=== PATIENT | male | born 1995 | race Two or more races ===

== ENCOUNTER 2024-08-22 13:00 | Outpatient (RCR) | payer OTHER, MEDICAID, SELFPAY ==
--- NOTE | 2024-08-06 09:45 | PT.ODAYNRPT ---
PT Outpatient Daily Note OP Daily Note Outpatient Physical Therapy Treatment Date: 08/06/24 Visit Reasons: CLOSED FX TIBIA RIGHT Subjective: Pt reports progress with R LE. Objective: Please see flow sheet for ther ex list. Assessment: Pt demonstrates improved gait, increase WB on R LE during stance phase. Plan: Continue with POC. Length of Time (minutes) of Treatment: 30 Minutes Procedure Charges Therapeutic Exercise 30 minutes: Yes
--- NOTE | 2024-08-09 13:05 | PTNOTE_ITS ---
PT Outpatient Daily Note OP Daily Note Outpatient Physical Therapy Treatment Date: 08/09/24 Visit Reasons: CLOSED FX TIBIA RIGHT Subjective: Pt's knee is better. Pt's surgeon mention he can return back to work after [place]. Objective: Please see flow chart for list of ther ex performed Assessment: progressing patient to single limb exercises with improved quad control and stability. Pt also demonstrate less antalgic gait pre therapy session Plan: Continue with PT Length of Time (minutes) of Treatment: 30 Minutes Procedure Charges Therapeutic Exercise 30 minutes: Yes
--- NOTE | 2024-08-14 09:51 | PT.ODAYNRPT ---
PT Outpatient Daily Note OP Daily Note Outpatient Physical Therapy Treatment Date: 08/14/24 Visit Reasons: CLOSED FX TIBIA RIGHT Subjective: Pt reports knee is doing better, mentioned surgeon cleared him to return to work in a month. Objective: Please see flow sheet for ther ex list. Assessment: Added half kneeling lunges, pt completed with good technique minimal discomfort. Plan: Continue with POC. Length of Time (minutes) of Treatment: 30 Minutes Procedure Charges Therapeutic Exercise 30 minutes: Yes
--- NOTE | 2024-08-16 14:17 | PTNOTE_ITS ---
PT Outpatient Daily Note OP Daily Note Outpatient Physical Therapy Treatment Date: 08/16/24 Visit Reasons: CLOSED FX TIBIA RIGHT Subjective: Pt reports R leg is doing better but notices that he still can not squat all the way or kneel. Pt shared R knee is swollen today. Objective: Please see flow sheet for ther ex list. 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 Plan: Continue with POC. Length of Time (minutes) of Treatment: 30 Minutes Procedure Charges Therapeutic Exercise 30 minutes: Yes
--- NOTE | 2024-08-19 14:03 | PT.ODAYNRPT ---
PT Outpatient Daily Note OP Daily Note Outpatient Physical Therapy Treatment Date: 08/19/24 Visit Reasons: CLOSED FX TIBIA RIGHT Subjective: Pt reports knee is doing better but now that the weather is cold has been having some pain. Objective: Please see flow sheet for ther ex list. Assessment: Added balance board exercise, pt able to perform with no IMPROVEMENT INTERN. Plan: Continue with POC. Length of Time (minutes) of Treatment: 30 Minutes Procedure Charges Therapeutic Exercise 30 minutes: Yes
--- NOTE | 2024-08-22 13:23 | PT.ODAYNRPT ---
PT Outpatient Daily Note OP Daily Note Outpatient Physical Therapy Treatment Date: 08/22/24 Visit Reasons: CLOSED FX TIBIA RIGHT Subjective: Pt reports R leg is doing better. Pt shared that he has occasional pain that is 3/10 and mentioned he has about two weeks that he has been going to the gym. Pt is content with progress he has made and would like for next PT session to be his last. Pt expressed that he venkata continue with HEP and home and continue going to the gym. Objective: Please see flow sheet for ther ex list. Assessment: Pt presents in clinic with improvement in ROM and strength. Pt able to replicate there ex with good mechanics indicting appropriate for pt to be releases perform HEP independently in following visit. Plan: Continue with pOC. Length of Time (minutes) of Treatment: 30 Minutes Procedure Charges Therapeutic Exercise 30 minutes: Yes
== END 2024-08-31 23:59 | disposition home or self-care (01) ==
LOC: CPTX 13:00
PROVIDERS: PCP Orthopaedic Surgery Orthopaedic Trauma; Referring Provider Orthopaedic Surgery Orthopaedic Trauma; Visit Provider Orthopaedic Surgery Orthopaedic Trauma
DX: M25.561 Pain in right knee (principal); R26.2 Difficulty in walking, not elsewhere classified; S82.141D Displaced bicondylar fracture of right tibia, subsequent encounter for closed fracture with routine healing; W17.89XD Other fall from one level to another, subsequent encounter
CPT/HCPCS: 97110

== ENCOUNTER 2024-09-09 08:05 | Outpatient (RCR) | payer OTHER, MEDICAID, SELFPAY ==
--- NOTE | 2024-09-09 09:33 | PT.ODS1RPT ---
PT OP Progress/Discharge Note Date of Service: 09/09/24 Progress Note/DC Note Progress Note/Discharge Note: DC Note Patient Information Visit Reasons: CLOSED FZ RIGHT TIBIA Medical Diagnosis: Closed Fracture of Tibial Plateau Treatment Dx #1: Right Knee Mobility Deficits Treatment Dx #2: Right Knee Weakness Service Continue Service or Discharge: Discharge Discharge Date: 09/09/24 Status Subjective: Pt's knee is better and was release from surgeon's care. Pt can return back to work after [place]. Pt can now walk, stand, perform chores, and ADLs with less limitation. Objective: Right Knee AROM: 0 deg to 125 deg Right Knee MMTs: grossly 4/5 Right Hip MMTs: grossly 4-/5 SLS: 30 sec Assessment: Pt demonstrate functional right knee mobility and strength allowing him to resume ADLs, ambulate, and perform recreational activities with less limitation. At this time Pt will be d/c from care with exercises to continue at home. Pt was instructed on HEP last session and educated to continue exercises to maintain overall mobility. Pt performed all exercises safely, thank you for your referrals. Plan: D/C home with HEP and follow up with MD STAFFORD Procedure Charges Therapeutic Exercise 30 minutes: Yes
== END 2024-10-01 23:59 | disposition home or self-care (01) ==
LOC: CPTX 08:05
PROVIDERS: PCP Orthopaedic Surgery Orthopaedic Trauma; Referring Provider Orthopaedic Surgery Orthopaedic Trauma; Visit Provider Orthopaedic Surgery Orthopaedic Trauma
DX: M25.561 Pain in right knee (principal); R26.2 Difficulty in walking, not elsewhere classified; S82.141D Displaced bicondylar fracture of right tibia, subsequent encounter for closed fracture with routine healing; X58.XXXD Exposure to other specified factors, subsequent encounter
CPT/HCPCS: 97110

== ENCOUNTER 2025-03-16 01:32 | Emergency (ER) | payer OTHER, MEDICAID, SELFPAY ==
[2025-03-16 01:32] VITALS: BMI 34.1
--- NOTE | 2025-03-16 01:34 | EKG_ITS ---
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
[2025-03-16 01:53] VITALS: BP 132/57; PULSE 57; RESP 18; TEMP 36.8; O2SAT 98
--- NOTE | 2025-03-16 02:05 | XR_ITS ---
Examination: PA chest single view TECHNIQUE: Upright PA chest single view Date and time: March 16, 2025 0212 hours INDICATIONS: Chest pain beginning one week ago. FINDINGS: Normal heart size. Lungs are clear. The osseous structures are intact IMPRESSION: No active disease
--- NOTE | 2025-03-16 02:24 | PRELIM_ITS ---
Radiograph of the chest (single view). March 16, 2025 at 0210 hours Clinical history: Chest pain. Comparison: No prior study is available for comparison. Findings: Cardiomegaly. The lungs are clear. There is no pleural effusion. The bony thorax is unremarkable. No pneumothorax. Impression: Cardiomegaly. Consider correlation with echocardiogram. Report Electronically Signed By: Manuel Wren 03/16/2025 2:23:48 AM [EST]
[2025-03-16 02:44] LABS: Basophils # (Auto) 0.1 Thou/mm3 (0.0-0.2); Basophils % (Auto) 1 % (0-2.5); Eosinophils # (Auto) 0.1 Thou/mm3 (0.0-0.5); Eosinophils % (Auto) 1 % (0-10); Hemoglobin 15.3 g/dL (13.5-16.0); Immature Granulocytes % (Auto) 0 % (0-0); Immature Granulocytes Auto 0.04 Thou/mm3 (0.00-0.00); Lymphocytes # (Auto) 1.9 Thou/mm3 (1.0-4.8); Lymphocytes % (Auto) 19 % (10-50); Mean Corpuscular HGB Conc 34.8 g/dl (31.0-37.0); Mean Corpuscular Hemoglobin 29.5 pg (25.0-35.0); Mean Corpuscular Volume 85 fL (80-100); Monocytes # (Auto) 0.7 Thou/mm3 (0.0-0.8); Monocytes % (Auto) 7 % (0-12); Neutrophils # (Auto) 7.2 Thou/mm3 (1.8-7.7); Neutrophils % (Auto) 72 % (37-80); Nucleated Red Blood Cell % 0 /100 WBC (0); Platelet Count 322 Thou/mm3 (140-440); RDW Standard Deviation 43.6 fL (35.1-43.9); Red Blood Count 5.19 Miln/mm3 (4.50-5.90)
--- NOTE | 2025-03-16 03:05 | PD.EDCHEST ---
ED Chest Pain RME/HPI General Chief Complaint: Chest Pain Stated Complaint: CHEST PAIN FOR THE LAST WEEK Time Seen by Provider: 03/16/25 02:05 Arrival date/time: 03/16/25 01:32 29M with no significant PMH presents to ED with several year of intermittent CP, worse this past week. Patient denies SOB, URI symptoms, and alcohol/drug use. Patient states sometimes when he stretches, his chest pops, and he feels better. Patient has never seen any provider for this. Limitations: no limitations Related Data Allergies Allergy/AdvReac Type Severity Reaction Status Date / Time No Known Allergies Allergy Verified 03/16/25 01:32 Review of Systems Review of Systems Systems Reviewed: All systems reviewed, normal except as documented Constitutional Constitutional: Reports system reviewed and no additional complaints, except as documented, Denies fever(s) and Denies headache(s) ENT Ears, Nose, Mouth, and Throat: Denies disequilibrium and Denies headache(s) Cardiovascular Cardiovascular: Reports system reviewed and no additional complaints, except as documented, Reports as per HPI, Reports chest pain and Denies dyspnea Respiratory Respiratory: Reports system reviewed and no additional complaints, except as documented, Denies cough and Denies dyspnea Gastrointestinal Gastrointestinal: Reports system reviewed and no additional complaints, except as documented, Denies abdominal pain, Denies nausea and Denies vomiting Neurologic Neurologic: Reports system reviewed and no additional complaints, except as documented, Denies confusion, Denies disequilibrium and Denies headache(s) Psychiatric Psychiatric: Denies confusion Past Medical History Social History SMOKING STATUS: Never smoker ED Exam General Limitations: Present no limitations General appearance: Present alert and in no apparent distress Head Head exam: Present atraumatic Eye Eye exam: Present normal appearance, PERRL and EOMI ENT ENT exam: Present normal exam, normal oropharynx and mucous membranes moist Neck Neck exam: Present normal inspection, full ROM and trachea midline Chest Chest inspection: Present normal inspection and symmetric chest wall rise Respiratory Respiratory exam: Present normal lung sounds bilaterally Cardiovascular Cardiovascular exam: Present regular rate, normal rhythm and normal heart sounds Abdominal Exam Abdominal exam: Present soft and normal bowel sounds Extremities Exam Extremities exam: Present normal inspection and full ROM Back Exam Back exam: Present normal inspection and full ROM Neurological Exam Neurological exam: Present alert, oriented X3 and CN II-XII intact Psychiatric Psychiatric exam: Present normal affect and normal mood Skin Skin exam: Present warm, dry, intact and normal color Course Quality Measures none Orders Category Date Time Status EKG (ED ONLY) *Do not use* NOW Care 03/16/25 01:34 Completed EKG (ED Only) Stat Exams 03/16/25 01:34 Draft XR chest 1V portable Stat Exams 03/16/25 02:05 Taken B-Type Natriuretic Peptide Stat Lab 03/16/25 02:26 Completed CBC Stat Lab 03/16/25 02:26 Completed Comprehensive Metabolic Panel Stat Lab 03/16/25 02:26 Completed D-Dimer Stat Lab 03/16/25 02:26 Completed Troponin I Stat Lab 03/16/25 02:26 Completed Vital Signs Vital signs: Vital Signs Temperature 98.3 F 03/16/25 01:53 Pulse Rate 57 L 03/16/25 01:53 Respiratory Rate 18 03/16/25 01:53 Blood Pressure 132/57 H 03/16/25 01:53 Pulse Oximetry (%) 98 03/16/25 01:53 Oxygen Delivery Method Room Air 03/16/25 01:53 O2 at 98% on RA and WNLs Chest Pain MDM Narrative MDM Narrative:: 29M with no significant PMH presents to ED with several year of intermittent CP, worse this past week. Patient denies SOB, URI symptoms, and alcohol/drug use. Patient states sometimes when he stretches, his chest pops, and he feels better. Patient has never seen any provider for this. Physical exam reveals no chest wall tenderness. Clear lungs. Normal WOB. Patient is afebrile, calm, and alert. EKG is sinus jennie of 53. CXR reveals possible cardiomegaly. Normal trop, BNP, and D-dimer. CMP unremarkable except for mildly elevated K of 5.4. CBC unremarkable. Education Associate given. Patient data External records reviewed:: None Clinical information provided by:: patient Social determinants that could affect healthcare access:: none Patient has the following chronic illnesses:: none How is presenting disease/condition affected by chronic disease/condition?: no chronic disease Evaluation data The following diagnostics were reviewed and interpreted by me:: lab results, radiology exam(s) and EKG tracing(s) Lab and/or radiology exams considered but not ordered:: ordered Interpretation Summary: above Medications / Prescriptions Medications or Prescriptions considered but not ordered:: not ordered Medication administrations:: n/a Consultations Consultation(s) initiated? (list below): No Diagnosis Chest Pain Differential Diagnosis: fracture of rib, pneumothorax, stable angina, unstable angina pectoris, atypical chest pain, st elevation myocardial infarction, costochondritis, chest pain, biliary colic and other (hyperkalemia) Most likely diagnosis given after review of the tests above:: hyperkalemia and atypical chest pain Admission Indicated Admission indicated?: not indicated Admission Request Was there a request for admission?: No Disposition Plan Disposition Plan: Discharge Discharge Attestation Discharge Attestation: The patient and all family members were given an opportunity to ask questions and understood the discharge instructions. Discharge instructions specifically effects, indications for sooner follow up or return to the emergency department, and the expected course of current diagnosis. Patient condition: Stable Discharge Plan Plan Patient Disposition: HOME (Self Care) Discharge Disposition comment: Stable Prescriptions/Referrals Referrals: Toby Morris MD [Primary Care Provider] - In 1 week Problem List Clinical Impression: Hyperkalemia, Atypical chest pain Patient/Caregiver Discharge Instructions Education Materials: ED Chest Pain, Noncardiac, ED Hyperkalemia Additional Instructions: Please follow-up with PCP within 24-48 hours and return immediately if symptoms worsen. Can see PCP for referral to cardiology. Print Language: Cape Verdean Stand Alone Forms: Patient Portal Info Letter REED/DARIAN Supervising Physician KATHY Supervising Physician: Dr. Lemon
[2025-03-16 03:06] LABS: D-Dimer < 250 ng/mL (<600)
[2025-03-16 03:07] LABS: Alanine Aminotransferase 21 U/L (10-49); Albumin/Globulin Ratio 1.9 (1.2-2.2); Alkaline Phosphatase 100 U/L (46-116); Anion Gap 8 (7-16); Aspartate Amino Transferase 28 U/L (0-34); BUN/Creatinine Ratio 8 Ratio (12-20); Bilirubin,Total 0.5 mg/dL (0.3-1.2); Blood Urea Nitrogen 8 mg/dL (9-23); Calcium 9.4 mg/dL (8.3-10.6); Calcium (Corrected) 9.4 mg/dL (8.5-10.1); Carbon Dioxide 27.2 mMol/L (20.0-31.0); Chloride 107 mMol/L (98-107); Estimated Creatinine Clearance 115.3 mL/min (>60); Globulin 2.7 gm/dL (2.3-3.5); Glucose 107 mg/dL (74-106); Osmolality,Calculated 281 (275-295); Potassium 5.4 mMol/L (3.4-5.1); Sodium 142 mMol/L (136-145); Total Protein 7.7 gm/dL (5.7-8.2); Troponin I < 0.002 ng/mL (0.0-0.045); eGFR > 60 See Note
[2025-03-16 03:11] LABS: B-Type Natriuretic Peptide < 20 pg/mL (0-100)
== END 2025-03-16 03:20 | disposition home or self-care (01) ==
PROVIDERS: Physician Assistant; Emergency Provider Emergency Medicine; PCP Family Medicine
DX: E87.5 Hyperkalemia (principal); R07.89 Other chest pain; I49.8 Other specified cardiac arrhythmias; R00.1 Bradycardia, unspecified
CPT/HCPCS: 36415; 71045; 80053; 83880; 84484; 85025; 85379; 93005; 99283

== ENCOUNTER 2025-05-13 00:38 | Emergency (ER) | payer OTHER, MEDICAID, SELFPAY ==
--- NOTE | 2025-05-13 00:41 | EKG_ITS ---
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
[2025-05-13 00:50] VITALS: BP 134/76; PULSE 54; RESP 18; TEMP 36.9; O2SAT 97; BMI 33.4
--- NOTE | 2025-05-13 02:57 | PD.EDADULT ---
ED General RME/HPI General Chief complaint: Chest Pain Stated complaint: CHEST AREA PAIN Time Seen by Provider: 05/13/25 02:53 Arrival date/time: 05/13/25 00:38 RME / HPI RME / HPI narrative: 30-year-old male with no relevant past medical history comes into the ED with chief complaint of chest pain. Patient states that his chest pain started today when he was sleeping and the chest pain woke him up. He describes the chest pain as sharp in nature and he mentioned that it radiates to his left arm and it was feeling a little bit numb. He mentions that nothing makes the pain better or worse and does not changes with positioning. Patient mentioned that at this time it is gone, but he still feels like a burning sensation. Mentioned that he is supposed to go see a lead oxide mill tender as his primary care physician is referring him due to enlarged cardiac sweat on chest x-ray. Mentioned lower extremity swelling at the end of the day. Otherwise patient does not have any shortness of breath, but he endorses that he gets more tired now when he does exercises. Denies having any abdominal pain, nausea, vomiting, changes in vomiting, burning sensation in urination, headache, blurry vision, or diaphoresis. Otherwise no other complaints at this time. 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 External ears normal. No rhinorrhea. Moist mucous membranes. Neck: Supple, full range of motion, no observable masses, No meningeal sign. Lungs: No Respiratory distress, clear bilateral. CV: RRR, no murmurs. Abdomen: Soft, nondistended, No rebound tenderness. MSK: No joint swelling, no redness, peripheral pulses presents, lumbar with no edema. Skin: No rashes, petechiae, lesions.. Neuro: No focal neurological deficits appreciated, sensory and motor intact. Psych: Cooperative, appropriate mood and effect. Course Quality Measures none Orders Category Date Time Status EKG (ED ONLY) *Do not use* NOW Care 05/13/25 00:41 Completed EKG (ED Only) Stat Exams 05/13/25 00:41 Draft EKG (ED Only) Stat Exams 05/13/25 02:53 Stop Req CBC Stat Lab 05/13/25 03:10 Completed CMP [Comprehensive Metabolic Panel] Stat Lab 05/13/25 03:10 Completed Drug Screen,Urine Stat Lab 05/13/25 03:22 Received Troponin I Stat Lab 05/13/25 03:10 Completed UA [Urinalysis] Stat Lab 05/13/25 03:22 Completed Vital Signs Vital signs: Vital Signs Temperature 98.4 F 05/13/25 00:50 Pulse Rate 54 L 05/13/25 00:50 Respiratory Rate 18 05/13/25 00:50 Blood Pressure 134/76 H 05/13/25 00:50 Pulse Oximetry (%) 97 05/13/25 00:50 Oxygen Delivery Method Room Air 05/13/25 00:50 Discharge Plan Plan Patient Disposition: HOME (Self Care) Problem List Clinical Impression: Atypical chest pain Patient/Caregiver Discharge Instructions Other Activity Instructions:: Follow-up with primary care physician within 5 days Recommend to follow-up outpatient with lead oxide mill tender. Come back to the ER if symptoms persist or worsen. Education Materials: ED Chest Pain, Noncardiac Print Language: Cymro Stand Alone Forms: Xiomara Award Info., Patient Portal Info Letter MDM Narrative MDM hospital course: Patient was seen and assessed by myself. Diagnostic labs and imaging was ordered. Patient's lab came back and slight elevation of WBC, but patient does not have any fevers at this time. UA was positive bacteria, but patient does not have any symptoms at this time. Otherwise troponins were negative and EKG did not show any ST changes. At this time we will discharge patient with close follow-up with primary care physician and outpatient follow-up with lead oxide mill tender. Patient agrees with plan. Case disclosed with Attending Dr. Lucila Harkins PGY2 Disclaimer: Even though this this note was dictated by speech recognition and even though it was carefully revised there may still be minor errors in pulp maker due to voice recognition software.
[2025-05-13 03:28] LABS: Collection Type, Urine Voided; Squamous Epithelial Cell,Urine 0 /hpf (0-5)
[2025-05-13 03:31] LABS: Basophils # (Auto) 0.1 Thou/mm3 (0.0-0.2); Basophils % (Auto) 1 % (0-2.5); Eosinophils # (Auto) 0.0 Thou/mm3 (0.0-0.5); Eosinophils % (Auto) 0 % (0-10); Hematocrit 45.9 % (41.0-53.0); Hemoglobin 15.7 g/dL (13.5-16.0); Immature Granulocytes Auto 0.06 Thou/mm3 (0.00-0.00); Lymphocytes # (Auto) 2.0 Thou/mm3 (1.0-4.8); Lymphocytes % (Auto) 18 % (10-50); Mean Corpuscular HGB Conc 34.2 g/dl (31.0-37.0); Mean Corpuscular Hemoglobin 30.0 pg (25.0-35.0); Mean Corpuscular Volume 88 fL (80-100); Monocytes # (Auto) 0.5 Thou/mm3 (0.0-0.8); Monocytes % (Auto) 4 % (0-12); Neutrophils # (Auto) 8.7 Thou/mm3 (1.8-7.7); Neutrophils % (Auto) 77 % (37-80); Nucleated Red Blood Cell # 0.00 Thou/mm3 (0.00-0.00); Nucleated Red Blood Cell % 0 /100 WBC (0); Platelet Count 316 Thou/mm3 (140-440); RDW Standard Deviation 43.6 fL (35.1-43.9); Red Blood Count 5.24 Miln/mm3 (4.50-5.90); White Blood Count 11.3 Thou/mm3 (3.8-10.6)
[2025-05-13 03:41] LABS: Amorphous Crystals,Urine Present (Absent); Bacteria,Urine Rare; Bilirubin,Urine Negative (Negative); Blood,Urine Negative (Negative); Clarity,Urine Clear (Clear/Hazy); Color,Urine Yellow (Lt Yel-Yel); Glucose, Urine Negative (Negative); Ketones,Urine Negative (Negative); Leukocyte Esterase,Urine Positive (Negative); Nitrite,Urine Negative (Negative); PH,Urine 6.0 (5.0-7.0); Protein,Urine Trace (Neg - Trace); RBC,Urine 2 /hpf (0-3); Specific Gravity,Urine 1.035 (1.001-1.035); Urobilinogen,Urine 2.0 mg/dL (0.0-1.0); WBC,Urine 2 /hpf (0-5)
[2025-05-13 03:48] LABS: Alanine Aminotransferase 13 U/L (10-49); Albumin, Serum 4.9 gm/dL (3.5-5.0); Albumin/Globulin Ratio 1.8 (1.2-2.2); Alkaline Phosphatase 98 U/L (46-116); Anion Gap 11 (7-16); Aspartate Amino Transferase 16 U/L (0-34); BUN/Creatinine Ratio 12 Ratio (12-20); Bilirubin,Total 0.4 mg/dL (0.3-1.2); Blood Urea Nitrogen 11 mg/dL (9-23); Calcium 9.4 mg/dL (8.3-10.6); Calcium (Corrected) 9.4 mg/dL (8.5-10.1); Carbon Dioxide 25.1 mMol/L (20.0-31.0); Chloride 105 mMol/L (98-107); Creatinine (Component) 0.9 mg/dL (0.6-1.3); Estimated Creatinine Clearance 125.7 mL/min (>60); Globulin 2.7 gm/dL (2.3-3.5); Glucose 117 mg/dL (74-106); Osmolality,Calculated 281 (275-295); Potassium 4.0 mMol/L (3.4-5.1); Sodium 141 mMol/L (136-145); Total Protein 7.6 gm/dL (5.7-8.2); Troponin I < 0.002 ng/mL (0.0-0.045); eGFR > 60 See Note
[2025-05-13 03:58] LABS: Amphetamine/Methamp Scrn,U Negative (Negative); Barbiturate Screen,Urine Negative (Negative); Benzodiazepines Screen,Urine Negative (Negative); Benzoylecgonine Screen, Ur Negative (Negative); Fentanyl Screen,Urine Negative (Negative); Opiate Screen,Urine Negative (Negative); THC Screen,Urine Positive (Negative)
--- NOTE | 2025-05-13 04:25 | PC.NURSE ---
called pt in er lobby for dc papers and no answer
--- NOTE | 2025-05-13 04:30 | PC.NURSE ---
called pt in er lobby and outside of er for dc and no answer.
== END 2025-05-13 04:13 | disposition home or self-care (01) ==
LOC: SERX 04:39
DX: R07.89 Other chest pain (principal); F12.90 Cannabis use, unspecified, uncomplicated; I45.10 Unspecified right bundle-branch block
CPT/HCPCS: 36415; 80053; 80307; 81001; 84484; 85025; 93005; 99283